=== PATIENT | male | born 1985 | race Caucasian/White ===

== ENCOUNTER → 2019-02-02 | Outpatient (CLI) | payer OTHER ==
--- NOTE | 2019-02-02 16:58 | RAD ---
EXAM DESCRIPTION: Tibia/Fibula,Right CLINICAL HISTORY: 33 years Male, contusion of right lower leg, initial encounter COMPARISON: None. FINDINGS: Visualized bones appear well mineralized. No acute fracture or dislocation. The proximal and distal tibiofibular joints are intact. The overlying soft tissues appear grossly unremarkable. IMPRESSION: 1. No acute fracture or dislocation. Electronically signed by: Braden Hernandez MD 02/02/2019 4:55 PM CDT
== END ==
LOC: RAD 16:29
PROVIDERS: ATTEND Nurse Practitioner Family
DX: S80.11XA Contusion of right lower leg, initial encounter (principal)